=== PATIENT | male | born 1995 | race Two or more races ===

== ENCOUNTER 2020-01-31 16:08 | Emergency (ER) | payer SELFPAY ==
[~2020-01-31] VITALS: Ht 165.1 cm; Wt 54.4 kg
--- NOTE | 2020-01-31 16:25 | NUR ---
ED Nurse Note: Pt came to ED for nausea and vomiting x2 days. Pt states he's been drinking heavy liquor every day, stopped 2 days ago and got heavy N&V. Pt is alert and orientedx4, weak.
[2020-01-31] MEDS ORDERED: Ketorolac 30mg Inj IV ONE (16:30)
[2020-01-31 16:34] VITALS: BP 123/73
[2020-01-31 16:46] LABS: EOSINOPHILS % (AUTO) 4.7 % (0.0-3.0); HEMATOCRIT 43.3 % (42.0-52.0); HEMOGLOBIN 14.5 G/DL (14.2-18.0); LYMPHOCYTES % (AUTO) 40.8 % (20.0-45.0); MEAN CORPUSCULAR VOLUME 97 FL (80-99); MONOCYTES % (AUTO) 8.1 % (1.0-10.0); NEUTROPHILS % (AUTO) 43.4 % (45.0-75.0); PLATELET COUNT 283 K/UL (150-450); RED BLOOD COUNT 4.44 M/UL (4.70-6.10)
[2020-01-31 16:51] LABS: ANION GAP 14 mmol/L (5-15); BLOOD UREA NITROGEN 7 mg/dL (7-18); CALCIUM 8.6 MG/DL (8.5-10.1); CARBON DIOXIDE 25 MMOL/L (21-32); CHLORIDE 103 MMOL/L (98-107); CREATININE 0.9 MG/DL (0.55-1.30); SODIUM 142 MMOL/L (136-145)
[2020-01-31 16:58] LABS: ALANINE AMINOTRANSFERASE 65 U/L (12-78); ALBUMIN 4.4 G/DL (3.4-5.0); ALBUMIN/GLOBULIN RATIO 1.3 (1.0-2.7); ALKALINE PHOSPHATASE 97 U/L (46-116); ASPARTATE AMINO TRANSFERASE 59 U/L (15-37); BILIRUBIN,TOTAL 0.6 MG/DL (0.2-1.0)
[2020-01-31 16:58] LABS: BILIRUBIN, URINE NEGATIVE (NEGATIVE); COLOR,URINE BROWN; GLUCOSE, URINE (UA) NEGATIVE (NEGATIVE); KETONES,URINE 1+ (NEGATIVE); LEUKOCYTE ESTERASE ,URINE 2+ (NEGATIVE); NITRITE,URINE POSITIVE (NEGATIVE); PH,URINE 5 (4.5-8.0); PROTEIN,URINE 2+ (NEGATIVE); UROBILINOGEN,URINE 1 MG/DL (0.0-1.0)
[2020-01-31 17:00] LABS: CREATINE KINASE 474 U/L (26-308)
[2020-01-31 17:18] LABS: APPEARANCE,URINE VERY CLOUDY
[2020-01-31] MEDS ORDERED: Omnipaque-300 100ml vial INJ PRN (17:30)
[2020-01-31] MEDS ORDERED: cefTRIAXone 1 GM in NS 55 ML IVPB ONE (18:00)
--- NOTE | 2020-01-31 18:02 | Diagnostic Imaging Report ---
EXAM: CT Abdomen and Pelvis With Intravenous Contrast CLINICAL HISTORY: Nodule and vomiting for 2 days. TECHNIQUE: Axial computed tomography images of the abdomen and pelvis with intravenous contrast. CTDI is 3.3 mGy and DLP is 164.4 mGy-cm. One or more of the following dose reduction techniques were used: automated exposure control, adjustment of the mA and/or kV according to patient size, use of iterative reconstruction technique. COMPARISON: None. FINDINGS: Lung bases: Unremarkable. No mass. No consolidation. Pleural space: No pleural effusions. Heart: The heart is normal in size. ABDOMEN: Liver: Diffuse fatty infiltration of the liver is noted. The liver and the spleen enhance uniformly. Gallbladder and bile ducts: See below. Pancreas: See below. Spleen: See above. Adrenals: The adrenal glands, the head, body, tail of the pancreas and the gallbladder are unremarkable. Kidneys and ureters: Both kidneys are shown to excrete contrast bilaterally. No hydronephrosis. Stomach and bowel: Presumed ingested material in the stomach. Moderate quantity of stool throughout the colon. No evidence of bowel obstruction. Diverticulosis without diverticulitis. PELVIS: Appendix: The appendix is seen on sagittal image 35 and is unremarkable. Bladder: The bladder is underdistended. Reproductive: Unremarkable as visualized. ABDOMEN and PELVIS: Intraperitoneal space: Unremarkable. No free air. No significant fluid collection. Bones/joints: The osseous structures are unremarkable. Alignment of the thoracolumbar spine is unremarkable. Sacrum and coccyx are unremarkable. No acute fracture. Soft tissues: Ischiorectal fat is clean. Vasculature: Flow is demonstrated within the celiac, SMA, the renal arteries, and NELA. No abdominal aortic aneurysm. Lymph nodes: No retroperitoneal lymphadenopathy. No pelvic or inguinal lymphadenopathy. IMPRESSION: 1. Diffuse fatty infiltration of the liver. 2. The gallbladder is unremarkable. 3. No renal calculus or hydronephrosis. 4. No bowel obstruction. 5. The appendix is unremarkable. 6. Diverticulosis without diverticulitis.
--- NOTE | 2020-01-31 18:09 | Emergency Room Report ---
History of Present Illness General Chief Complaint: Nausea, Vomiting, and Diarrhea Source: Patient Present Illness HPI 24-year-old male with history of alcohol abuse he reports he drinks a bottle of alcohol every day and has been doing so for the past 2 years here complaining of left-sided abdominal pain and multiple bouts of emesis slightly blood-tinged x2 days. Reports that 2 days ago he started cutting his alcohol consumption in half and started vomiting more. Denies any diarrhea blood in stool. Denies fever and chills, diffuse abdominal pain. Denies any chest pain, shortness of breath, palpitation, headache and dizziness. Denies any drug use. Denies any tobacco smoke. Allergies: Coded Allergies: No Known Allergies (Unverified , 01/31/20) COVID-19 Screening Contact w/high risk pt: No Experienced COVID-19 symptoms?: No COVID-19 Testing performed EMAIL ADMINISTRATOR: No Patient History Past Medical History: see triage record Past Surgical History: unable to obtain Pertinent Family History: unable to obtain Social History: Reports: alcohol use Immunizations: UTD Reviewed Nursing Documentation: PMH: Agreed; PSxH: Agreed Nursing Documentation-PMH Past Medical History: No History, Except For Review of Systems All Other Systems: negative except mentioned in HPI Physical Exam Vital Signs Date Time Temp Pulse Resp B/P (MAP) Pulse Ox O2 Delivery O2 Flow Rate FiO2 01/31/20 16:12 99.3 86 17 129/79 (96) 98 Room Air Sp02 EP Interpretation: reviewed, normal General Appearance: no apparent distress, alert, GCS 15, non-toxic Head: normocephalic, atraumatic Eyes: bilateral eye normal inspection, bilateral eye PERRL ENT: hearing grossly normal, normal pharynx, no angioedema, normal voice Neck: full range of motion, supple/symm/no masses Respiratory: chest non-tender, lungs clear, normal breath sounds, speaking full sentences Cardiovascular #1: regular rate, rhythm, no edema Gastrointestinal: non tender, soft, no mass, no organomegaly, no peritonitis, no bruit Rectal: deferred Genitourinary: no CVA tenderness Musculoskeletal: back normal, no calf tenderness Neurologic: alert, motor strength/tone normal, oriented x3, sensory intact, responsive, speech normal Psychiatric: judgement/insight normal, memory normal, mood/affect normal, no suicidal/homicidal ideation Skin: no rash Lymphatic: no adenopathy Medical Decision Making PA Attestation All diagnoses and treatment plans were reviewed and discussed with my supervising physician Dr. Dinero Diagnostic Impression: Primary Impression: Diverticulosis Additional Impressions: UTI (urinary tract infection) Alcohol withdrawal Fatty liver ER Course 24-year-old male with history of alcohol abuse he reports he drinks a bottle of alcohol every day and has been doing so for the past 2 years here complaining of left-sided abdominal pain and multiple bouts of emesis slightly blood-tinged x2 days. Reports that 2 days ago he started cutting his alcohol consumption in half and started vomiting more. Denies any diarrhea blood in stool. Denies fever and chills, diffuse abdominal pain. Denies any chest pain, shortness of breath, palpitation, headache and dizziness. Denies any drug use. Denies any tobacco smoke. Ddx considered but are not limited to: appendicitis, cholecystis, gastritis, gastroenteritis, UTI, pyelonephritis, SBO, diverticulitis, influenza with GI manifestation, CO, pancreatitis Vital signs: are WNL, pt. is afebrile H&PE are most consistent with: Diverticulosis, fatty liver, UTI, alcohol withdrawal ORDERS: abdominal CT, abdominal pain set, Zofran, omeprazole, Keflex ED INTERVENTIONS: NS bolus, Rocephin, Zofran, Pepcid, Toradol DISCHARGE: At this time pt. is stable for d/c to home. Will provide printed patient care instructions, and any necessary prescriptions. Care plan and follow up instructions have been discussed with the patient prior to discharge. A list of rehab places were given to the patient, patient to stop drinking alcohol, patient take medication as directed, if worsening symptoms return to the emergency room CT/MRI/US Diagnostic Results CT/MRI/US Diagnostic Results : Imaging Test Ordered: CT abd pelvis w contrast Impression FINDINGS: Lung bases: Unremarkable. No mass. No consolidation. Pleural space: No pleural effusions. Heart: The heart is normal in size. ABDOMEN: Liver: Diffuse fatty infiltration of the liver is noted. The liver and the spleen enhance uniformly. Gallbladder and bile ducts: See below. Pancreas: See below. Spleen: See above. Adrenals: The adrenal glands, the head, body, tail of the pancreas and the gallbladder are unremarkable. Kidneys and ureters: Both kidneys are shown to excrete contrast bilaterally. No hydronephrosis. Stomach and bowel: Presumed ingested material in the stomach. Moderate quantity of stool throughout the colon. No evidence of bowel obstruction. Diverticulosis without diverticulitis. PELVIS: Appendix: The appendix is seen on sagittal image 35 and is unremarkable. Bladder: The bladder is underdistended. Reproductive: Unremarkable as visualized. ABDOMEN and PELVIS: Intraperitoneal space: Unremarkable. No free air. No significant fluid collection. Bones/joints: The osseous structures are unremarkable. Alignment of the thoracolumbar spine is unremarkable. Sacrum and coccyx are unremarkable. No acute fracture. Soft tissues: Ischiorectal fat is clean. Vasculature: Flow is demonstrated within the celiac, SMA, the renal arteries, and NELA. No abdominal aortic aneurysm. Lymph nodes: No retroperitoneal lymphadenopathy. No pelvic or inguinal lymphadenopathy. IMPRESSION: 1. Diffuse fatty infiltration of the liver. 2. The gallbladder is unremarkable. 3. No renal calculus or hydronephrosis. 4. No bowel obstruction. 5. The appendix is unremarkable. 6. Diverticulosis without diverticulitis. Last Vital Signs Date Time Temp Pulse Resp B/P (MAP) Pulse Ox O2 Delivery O2 Flow Rate FiO2 01/31/20 16:34 99.3 95 18 123/73 97 Room Air Disposition: HOME, SELF-CARE Condition: Stable Scripts Cephalexin* (KEFLEX*) 500 Mg Capsule 500 MG ORAL EVERY 12 HOURS for 7 Days, #14 CAP 0 Refills Prov: Kulwinder Zavala 01/31/20 Omeprazole (OMEPRAZOLE) 20 Mg Tablet.dr 20 MG ORAL DAILY, #30 TAB Prov: Kulwinder Zavala 01/31/20 Ondansetron (Zofran) 4 Mg Tablet 4 MG ORAL Q6H PRN for Nausea & Vomiting, #14 TAB Prov: Kulwinder Zavala 01/31/20 Referrals: NOT CHOSEN IPA/,REFERRING (PCP) Patient Instructions: Alcohol Withdrawal, Diverticulosis, Urinary Tract Infection, [id number] Additional Instructions: Avoid drinking alcohol, follow-up with primary care provider at rehab centers, take medication as directed, if worsening symptoms return to the emergency room Kulwinder Zavala Jan 31, 2020 18:09
[2020-01-31] MEDS ORDERED: ZOFRAN4 M1 ORAL (18:13)
[2020-01-31] MEDS ORDERED: OMEPRAZOLE20 M3 ORAL (18:13)
[2020-01-31] MEDS ORDERED: CEPHALEXIN500 MG ORAL (18:13)
[2020-01-31 18:27] VITALS: BP 125/72
--- NOTE | 2020-01-31 18:27 | NUR ---
ER DISCHARGE NOTE: Patient is cleared to be discharged per ERMD, pt is aox4, on room air, with stable vital signs. pt was given dc and prescription instructions, pt was able to verbalize understanding, pt id band and iv site removed without complications. pt is able to ambulate with steady gait. pt took all belongings. Pt educated regarding rehab center and detox.
== END 2020-01-31 18:27 | disposition home or self-care (01) ==
LOC: EMR 16:41
DX: K57.90 Diverticulosis of intestine, part unspecified, without perforation or abscess without bleeding (principal); F10.239 Alcohol dependence with withdrawal, unspecified; Y90.6 Blood alcohol level of 120-199 mg/100 ml; N39.0 Urinary tract infection, site not specified; K76.0 Fatty (change of) liver, not elsewhere classified
CPT/HCPCS: 36415; 74177; 80053; 80307; 81003; 82550; 83690; 85025; 85610; 85730; 87086; 87181; 96361; 96365; 96375; 99284; G0480; J0696; J1885; J2405; J7030; Q9965; S0028; J8499